=== PATIENT | female | born 1935 | race Caucasian/White ===

== ENCOUNTER → 2019-02-12 | Outpatient (CLI) | payer OTHER ==
[~2019-02-12] MED LIST: ASPIRIN81 M2 PO; B12INJ; BUSPAR15 MG; BYSTOLIC2.5 MG PO; CARBAMAZEPINE200 M3; CYMBALTA30 MG PO; FOLIC ACID1 MG PO; FOSAMAX 70 MG T70 M1 PO; MULTIVITAMINS1 EAC7 PO; NORCO 5-325 TA1 EACH PO; OCUVITE TABLET1 EAC1 PO; OS-CAL 500+D C1 EACH PO; SIMVASTATIN40 MG PO; SYNTHROID150 MCG PO; TOPAMAX25 M1; [UNRECOGNIZED DRUG - CODE] PO
== END ==
LOC: RAD 09:05
DX: M47.817 Spondylosis without myelopathy or radiculopathy, lumbosacral region (principal); M48.07 Spinal stenosis, lumbosacral region; M80.08XA Age-related osteoporosis with current pathological fracture, vertebra(e), initial encounter for fracture; M25.552 Pain in left hip

== ENCOUNTER → 2019-03-19 | Outpatient (CLI) | payer OTHER | LOC: NUC 09:32 | DX: M80.88XA Other osteoporosis with current pathological fracture, vertebra(e), initial encounter for fracture (principal) ==